=== PATIENT | male | born 1985 | race Caucasian/White ===

== ENCOUNTER 2017-08-17 18:56 | Emergency (ER) | payer OTHER ==
[2017-08-17] MEDS ORDERED: HYDROmorphone 1 MG/ML 1 ML SYRINGE IVP STA ×4 (19:01→22:18)
[2017-08-17] MEDS ORDERED: SODIUM CHLORIDE 0.9% 1,000 ML IV ONE (19:16)
[2017-08-17 19:17] VITALS: TEMP 97.5
--- NOTE | 2017-08-17 19:18 | ED ---
Lower Extremity Injury HPI <TomasPatrice - Last Filed: 08/17/17 21:10> - General Source: RN notes reviewed, old records reviewed <Deanne Zambrano - Last Filed: 08/17/17 21:36> - General Chief Complaint: Extremity Injury, Lower Stated Complaint: femur fracture Time Seen by Provider: 08/17/17 19:00 - History of Present Illness Initial Comments: Patient is a 32-year-old male with history of osteopenia process, marble bone disease, presents emergency Department with right femur pain. Patient is here on vacation from [place], and was playing flag football with his family. He reports that his cousin came towards to tackle him, and tackled him at his knee. Patient states that he felt his leg give, and he has not been able to bear weight on it. They called EMS and brought him here. Patient reports he has an obvious deformity in his right femur. He denies any foot or ankle pain. Patient states that he has broken his left hip, right forearm. Patient was given pain medication via EMS. denies any other significant medical history. (Deanne Zambrano) - Related Data Home Medications Medication Instructions Recorded Confirmed Cholecalciferol [Vitamin D3] 1,000 unit PO DAILY 08/17/17 08/17/17 Ibuprofen [Advil] 600 mg PO Q8HR PRN 08/17/17 08/17/17 Vitamin K2 1 tab PO DAILY 08/17/17 Allergies Allergy/AdvReac Type Severity Reaction Status Date / Time No Known Allergies Allergy Verified 08/17/17 19:46 Review of Systems ROS Other: All systems not noted in ROS Statement are negative. <TomasPatrice - Last Filed: 08/17/17 21:10> ROS Other: All systems not noted in ROS Statement are negative. <Deanne Zambrano - Last Filed: 08/17/17 21:36> ROS Statement: Those systems with pertinent positive or pertinent negative responses have been documented in the HPI. General Exam <Patrice Marin - Last Filed: 08/17/17 21:10> General appearance: alert, in no apparent distress Head exam: Present: atraumatic, normocephalic, normal inspection Eye exam: Present: normal appearance, PERRL, EOMI. Absent: scleral icterus, conjunctival injection, periorbital swelling ENT exam: Present: normal exam, mucous membranes moist Neck exam: Present: normal inspection. Absent: tenderness, meningismus, lymphadenopathy Respiratory exam: Present: normal lung sounds bilaterally Cardiovascular Exam: Present: regular rate, normal rhythm, normal heart sounds. Absent: systolic murmur, diastolic murmur, rubs, gallop, clicks GI/Abdominal exam: Present: soft, normal bowel sounds. Absent: distended, tenderness, guarding, rebound, rigid Right Upper Leg exam: Absent: normal inspection, full ROM (Patient has obvious deformity in the right femur. Significant swelling noted. No lacerations or open fractures.) Knee exam: Present: tenderness, swelling. Absent: normal inspection Lower Leg exam: Present: normal inspection, full ROM Ankle exam: Present: normal inspection, full ROM Foot/Toe exam: Present: normal inspection, full ROM Neurovascular tendon exam: Present: no vascular compromise Back exam: Present: normal inspection Neurological exam: Present: alert, oriented X3, CN II-XII intact <Deanne Zambrano - Last Filed: 08/17/17 21:36> - General Exam Comments Initial Comments: Patient is a 32-year-old male. Patient appears in obvious distress and discomfort. (Deanne Zambrano) Vital Signs 08/17/17 08/17/17 08/17/17 19:10 19:35 20:15 Temperature 97.5 F L Pulse Rate 89 100 89 Respiratory 22 22 20 Rate Blood Pressure 175/104 148/88 138/65 O2 Sat by Pulse 98 99 99 Oximetry Medical Decision Making - Lab Data Result diagrams: 08/17/17 20:15 08/17/17 20:15 <Patrice Marin - Last Filed: 08/17/17 21:10> - Lab Data Result diagrams: 08/17/17 20:15 08/17/17 20:15 - Radiology Data Radiology results: report reviewed <Deanne Zambrano - Last Filed: 08/17/17 21:36> - Medical Decision Making I saw this patient in conjunction with the physician collections assistant. I performed independent history and physical exam. Agree with case management. Case discussed with Dr. Petit who will accept to cat II to be seen by orthopedic surgery.. (Patrice Marin) Patient is a 32-year-old male with a history of osteopetrosis presents emergency Department with right femur fracture. He is pulling football and was hit in the knee. Patient has had a left hip throw plastic surgery. Patient has significant midshaft fracture of the right femur, there is 1 cm medial displacement of the distal fragment. There is anterior angulation on the lateral view. Patient has normal pulses bilaterally. Range of motion in toes and ankle are preserved. Patient was placed in a pillow and the leg was stabilized. I discussed this with Dr. Love's PA neck branch. He recommends transfer to a orthopedic trauma facility given patient's history of osteopetrosis. Patient requests to be transferred to [facility]. Given pain medicine and stabilized. Patient asked understanding of the transfer. Discussed this with Dr. Marin. He discussed this with Dr. Caceres who will be seeing the patient. She will remain nothing by mouth at this time. Lab work was reviewed and negative for any significant abnormalities. (Deanne Zambrano) - Lab Data Lab Results 08/17/17 08/17/17 08/17/17 Range/Units 20:15 20:15 20:15 WBC 5.6 (3.8-10.6) k/uL RBC 3.94 L (4.30-5.90) m/uL Hgb 12.0 L (13.0-17.5) gm/dL Hct 39.0 (39.0-53.0) % MCV 98.9 (80.0-100.0) fL MCH 30.5 (25.0-35.0) pg MCHC 30.9 L (31.0-37.0) g/dL RDW 16.3 H (11.5-15.5) % Plt Count 216 (150-450) k/uL Neutrophils % 67 % Lymphocytes % 24 % Monocytes % 7 % Eosinophils % 1 % Basophils % 0 % Neutrophils # 3.8 (1.3-7.7) k/uL Lymphocytes # 1.4 (1.0-4.8) k/uL Monocytes # 0.4 (0-1.0) k/uL Eosinophils # 0.1 (0-0.7) k/uL Basophils # 0.0 (0-0.2) k/uL Anisocytosis Slight Macrocytosis Slight PT 11.2 (9.0-12.0) sec INR 1.1 (<1.2) APTT 22.8 (22.0-30.0) sec Sodium 142 (137-145) mmol/L Potassium 4.1 (3.5-5.1) mmol/L Chloride 108 H (98-107) mmol/L Carbon Dioxide 26 (22-30) mmol/L Anion Gap 8 mmol/L BUN 16 (9-20) mg/dL Creatinine 1.00 (0.66-1.25) mg/dL Est GFR (MDRD) Af Amer >60 (>60 ml/min/1.73 sqM) Est GFR (MDRD) Non-Af >60 (>60 ml/min/1.73 sqM) Glucose 126 H (74-99) mg/dL Calcium 9.6 (8.4-10.2) mg/dL Total Bilirubin 0.2 (0.2-1.3) mg/dL AST 45 (17-59) U/L ALT 51 (21-72) U/L Alkaline Phosphatase 52 (38-126) U/L Total Protein 6.5 (6.3-8.2) g/dL Albumin 4.1 (3.5-5.0) g/dL - Radiology Data Pelvis x-ray shows changes of osteopetrosis. No bony or maladies. There is evidence of an acute fracture mid shaft of the femur, with 1 cm medial displacement of the distal fragment. Chest x-ray was reviewed and unremarkable. (Deanne Zambrano) Disposition - Out of Hospital Transfer - Req. Specs Out of Hospital Transfer - Requested Specifics: Other Emergency Center <Patrice Marin - Last Filed: 08/17/17 21:10> Time of Disposition: 21:35 - Out of Hospital Transfer - Req. Specs Out of Hospital Transfer - Requested Specifics: Other Emergency Center ([facility]) <Deanne Zambrano - Last Filed: 08/17/17 21:36> Clinical Impression: Fracture of femur Disposition: OTHER INSTITUTION NOT DEFINED Condition: Fair Referrals: Nonstaff,Physician [Primary Care Provider] - 1-2 days
[2017-08-17] MEDS ORDERED: HYDROmorphone 0.5 MG/0.5 ML SYRINGE IVP STA (19:22)
[2017-08-17] MEDS: HYDROmorphone 0.5 MG/0.5 ML SYRINGE IVP STA ×2 (19:33→22:37)
--- NOTE | 2017-08-17 19:40 | XR ---
EXAMINATION TYPE: XR femur RT DATE OF EXAM: 08/17/2017 COMPARISON: NONE HISTORY: Pain TECHNIQUE: 3 views FINDINGS: There is an acute midshaft fracture of the right femur. There is 1 cm medial displacement o f the distal fragment. There is anterior angulation on the lateral view. There is diffuse osteosclerosis of the visualized bony structures consistent with a history of osteop etrosis. IMPRESSION: Acute fracture of the femur.
--- NOTE | 2017-08-17 19:53 | XR ---
EXAMINATION TYPE: XR chest 1V portable DATE OF EXAM: 08/17/2017 COMPARISON: NONE HISTORY: Pain TECHNIQUE: Single frontal view of the chest is obtained. FINDINGS: There is no heart failure nor confluent pneumonic infiltrate. Costophrenic angles are jo ann r. There is no sign of a pneumothorax. There is diffuse osteosclerosis of the bony thorax consistent with osteopetrosis. IMPRESSION: No active cardiopulmonary disease.
--- NOTE | 2017-08-17 19:53 | XR ---
EXAMINATION TYPE: XR pelvis AP view DATE OF EXAM: 08/17/2017 COMPARISON: NONE HISTORY: Pain TECHNIQUE: Single view FINDINGS: There is diffuse osteosclerosis related to osteopetrosis. There are 2 screws in the intertr ochanteric left femur. There is deformity of the left femoral neck with coxa vera deformity. 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 I see no acute fracture of the pelvis. The pelvic ring is intact. Sacroiliac joint spaces are normal. IMPRESSION: Changes of osteopetrosis. No acute bony abnormality.
[2017-08-17 20:20] VITALS: BP 138/65; PULSE 89; RESP 20
[2017-08-17 20:36] LABS: Anisocytosis Slight; Basophils % (A) 0 %; CH 31.5; Eosinophils # (A) 0.1 k/uL (0-0.7); Eosinophils % (A) 1 %; HDW 2.53; Luc # (Auto) 0.07; Luc % (Auto) 1; Lymphocytes # (A) 1.4 k/uL (1.0-4.8); Lymphocytes % (A) 24 %; MCH 30.5 pg (25.0-35.0); MCHC 30.9 g/dL (31.0-37.0); MCV 98.9 fL (80.0-100.0); Macrocytosis Slight; Mean Platelet Volume 7.5; Monocytes # (A) 0.4 k/uL (0-1.0); Monocytes % (A) 7 %; Neutrophils # (A) 3.8 k/uL (1.3-7.7); Neutrophils % (A) 67 %; RBC 3.94 m/uL (4.30-5.90); RDW 16.3 % (11.5-15.5); WBC 5.6 k/uL (3.8-10.6); WBC (Perox) 6.04
[2017-08-17 20:42] LABS: INR 1.1 (<1.2); Partial Thromboplastin Time 22.8 sec (22.0-30.0); Prothrombin Time 11.2 sec (9.0-12.0)
[2017-08-17 20:50] LABS: ALT 51 U/L (21-72); AST 45 U/L (17-59); Alkaline Phosphatase 52 U/L (38-126); Anion Gap 8 mmol/L; Blood Urea Nitrogen 16 mg/dL (9-20); Calcium 9.6 mg/dL (8.4-10.2); Carbon Dioxide 26 mmol/L (22-30); Chloride 108 mmol/L (98-107); Glucose 126 mg/dL (74-99); Non-African American GFR(MDRD) >60 (>60 ml/min/1.73 sqM); Potassium 4.1 mmol/L (3.5-5.1); Sodium 142 mmol/L (137-145); Total Bilirubin 0.2 mg/dL (0.2-1.3); Total Protein 6.5 g/dL (6.3-8.2)
[2017-08-17] MEDS ORDERED: HYDROmorphone 2 MG/ML 1 ML SYRINGE IVP STA ×3 (21:24→22:25)
== END 2017-08-18 00:03 | disposition other institution (70) ==
LOC: EC 18:56
DX: S72.301A Unspecified fracture of shaft of right femur, initial encounter for closed fracture (principal); Z87.39 Personal history of other diseases of the musculoskeletal system and connective tissue; Z79.899 Other long term (current) drug therapy; W03.XXXA Other fall on same level due to collision with another person, initial encounter; Y93.62 Activity, american flag or touch football
CPT/HCPCS: 36415; 80053; 85025; 85610; 85730; 71010; 72170; 73552; 99285; 96374; 96376; 96361; J1170 ×2